=== PATIENT | female | born 1980 | race Caucasian/White ===

== ENCOUNTER 2019-07-21 16:36 | Outpatient (CLI) | payer OTHER, SELFPAY ==
--- NOTE | 2019-07-21 17:30 | MR_ITS ---
WS: [id number] MRI CERVICAL SPINE NONCONTRAST TECHNIQUE: Sagittal T1, T2 and STIR imaging. Axial T2, gradient, and fiesta imaging. CLINICAL INFORMATION: neck pain COMPARISON: None. FINDINGS: Mild cervical curve. Straightening of the normal cervical lordosis. No high-grade central canal steno sis. Disc bulging worse at C3-4 and C5-C6. Benign hemangioma C5 and C7 vertebral bodies C2-C3: Normal. C3-C4: Mild disc bulging and osteophytic ridging eccentric to the right with shallow right pericentra l disc osteophyte bulging. Spinal canal and foramen are patent. Slight effacement of the ventral thec al sac. C4-C5: Normal. C5-C6: Mild disc bulging and osteophytic ridging. Slight effacement of the ventral thecal sac with a shallow broad-based right pericentral protrusion. Mild to moderate right and no significant left fora bladimir narrowing. Mild facet arthropathy. C6-C7: Spinal canal and foramen are patent. Mild facet arthropathy. C7-T1: Mild left bony foraminal narrowing. Spinal canal and right foramen are patent. Visualized brain stem structures: Normal. Prevertebral soft tissues: Normal. MR/MR cervical spin wo con* [id number] IMPRESSION: 1. Mild cervical curve with straightening of the normal cervical lordosis. 2. Mild disc bulging worse at C3-C4 and C5-C6 worse at C5-C6. 3. Broad-based shallow right pericentral disc osteophyte complex C5-C6 with sl ight effacement of ventral thecal sac. Mild to moderate right foraminal narrowi ng. Mild facet arthropathy at this level. 4. Tiny right shallow pericentral protrusion C3-C4 with slight effacement of t he ventral thecal sac. Spinal canal and foramen are patent. 5. Mild facet arthropathy C5-C6 and C6-C7. 6. Mild left C7-T1 bony foraminal narrowing.
== END 2019-07-21 16:37 | disposition home or self-care (01) ==
PROVIDERS: Family Provider Nurse Practitioner Family; PCP Nurse Practitioner Family; Visit Provider Nurse Practitioner Family
DX: M25.78 Osteophyte, vertebrae (principal); M50.21 Other cervical disc displacement, high cervical region; M54.2 Cervicalgia
CPT/HCPCS: 72141

== ENCOUNTER 2019-10-10 10:15 | Outpatient (CLI) | payer OTHER, SELFPAY ==
--- NOTE | 2019-10-10 11:30 | CT_ITS ---
WS: [id number] CT ABDOMEN AND PELVIS WITH CONTRAST HISTORY: abd pain TECHNIQUE: Imaging performed of the abdomen and pelvis with IV contrast. Single phase imaging of the abdomen. Coronal and sagittal reformats are submitted. All CT scans at [facility] use at least one of these dose optimization techniques: automated exposure control; mA and/or kV adjustment per patient size (includes targeted exams where dose is matched to clinical indication); or iterativ e reconstruction. IV CONTRAST: Omnipaque 300; 95 mL IV. Oral contrast: Yes. DLP: 934.27 mGycm COMPARISON: None available. Lower thorax: Mild emphysematous changes at the lung bases. Heart is normal size. No hiatal hernia. 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 No bi le duct dilatation or mass. Gallbladder: Prior cholecystectomy. Pancreas: Normal. Spleen: Normal. Adrenal glands: Normal. Right kidney: Normal. Left kidney: Normal. Aorta: Normal. Lymphadenopathy: None. Free fluid: None. GI tract: The appendix is not definitely visualized. There are no inflammatory changes associated wit h the colon. Mild fecal retention. No obstruction or mucosal thickening. Abdominal wall: Unremarkable abdominal wall. No hernia. Pelvis: Normal. Bones: Unremarkable. CT/CT abdomen pelvis w con* [id number] IMPRESSION: 1. No acute intra-abdominal or pelvic abnormalities. 2. Appendix is not definitely visualized but there are no secondary findings o f appendicitis. 3. Prior cholecystectomy. 4. No free fluid or adenopathy.
[2019-10-10] MEDS: iohexol 300 mg/mL 50 mL Btl IV (11:48)
[2019-10-10] MEDS: iohexol 300 mg/mL 100 mL Btl IV (11:48)
== END 2019-10-10 10:16 | disposition home or self-care (01) ==
LOC: RADWPI 10:18
PROVIDERS: Family Provider Nurse Practitioner Family; PCP Nurse Practitioner Family; Visit Provider Nurse Practitioner Family
DX: R10.9 Unspecified abdominal pain (principal); Z90.49 Acquired absence of other specified parts of digestive tract
CPT/HCPCS: 74177; Q9967

== ENCOUNTER → 2020-12-24 16:33 | Outpatient (BNVA) | payer OTHER, SELFPAY | PROVIDERS: Family Provider Nurse Practitioner Family; PCP Nurse Practitioner Family; Visit Provider Nurse Practitioner Family | DX: R53.83 Other fatigue (principal); M25.50 Pain in unspecified joint; Z86.718 Personal history of other venous thrombosis and embolism; M79.606 Pain in leg, unspecified | CPT/HCPCS: 80053; 85025; 85379; 85651; 86038; 86140; 86431 ==

== ENCOUNTER → 2021-07-30 08:48 | Outpatient (BNVA) | payer OTHER, SELFPAY | PROVIDERS: Family Provider Nurse Practitioner Family; PCP Nurse Practitioner Family; Visit Provider Nurse Practitioner Family | DX: R53.83 Other fatigue (principal); I10 Essential (primary) hypertension; E78.5 Hyperlipidemia, unspecified; R07.89 Other chest pain | CPT/HCPCS: 80053; 80061; 84439; 84443; 84481 ==

== ENCOUNTER 2021-12-04 08:17 | Outpatient (CLI) | payer OTHER, SELFPAY ==
[2021-12-04 08:53] VITALS: BMI 23.8
--- NOTE | 2021-12-04 08:55 | ECG_ITS ---
[facility] Test Date: 2021-12-04 Pat Name: Janet Bernard Department: Room: Gender: Female [employer]: : 1980 Requested By: Linda Rodríguez Order Number: [id number] Barros MD: Estiven Gong M.D. Interpretive Statements NAME OF STUDY: EXERCISE SESTAMIBI STRESS TEST INDICATION: Chest Pain, PROCEDURE: The baseline electrocardiogram showed normal sinus rhythm with normal ST-Ts. At the baseline, the patient's blood pressure was 117/80 mm Hg with a heart rate of 96. The patient exercised for 5 minutes and 59 seconds on a standard Hi protocol. Patient attained a maximum heart rate of 158 beats per minute(87% of the maximum predicted heart rate) with a blood pressure at the peak exercise of 151/77 mm Hg. The EKG at the peak exercise revealed [address] depressions in the inferolateral leads. Patient did not have any chest pain or any significant arrhythmis with the exercise Sestamibi was injected 1 minute prior to the peak exercise During the recovery phase, there were no new changes. Blood pressure at the end of the recovery phase was 118/75 mm Hg with a heart rate of 96 per minute. CONCLUSION: 1. Nonspecific EKG changes with the treadmill exercise 2. No exercise-induced chest pain or cardiac arrhythmia 3. Somewhat impaired exercise tolerance, attained a maximum of 7.0 METs 4. Sestamibi/Sestamibi perfusion results pending; see separate report. Electronically Signed On 12-06-2021 17:52:07 CDT by Estiven Gong M.D. [id number]
--- NOTE | 2021-12-04 08:55 | NMCV_ITS ---
NM juan perf SPECT r/s* [id number] Janet Bernard Age: 41 Gender: F : 1980 Exam Date: 12/04/2021 09:46 Ordering Phys: Linda Rodríguez-Trevor ARITAP Technologist: VLADIMIR Nicholson Exam Location: [facility] Indications: Chest pain STRESS TEST Please see separate stress test report in [facility] for full findings IMAGE PROTOCOL Rest/Stress 1 Radiopharmaceutical Dose (mCi) Administration Site Administered by Rest: Tc-99m 10.6 IV VLADIMIR Nicholson Sestamidejan Stress:Tc-99m 32.5 IV VLADIMIR Nicholson Sestamidejan Rest: 04-Dec-2021 60 Discovery 630 Stress: 04-Dec-2021 30 Discovery 630 Radiopharmaceutical was injected at 86 % maximum heart rate. Images obtained in supine and prone position. SPECT RESULTS Technical Quality: Poor Raw Data Analysis: Breast attenuation Image Corrections: No attenuation or motion correction applied Summed Stress Score: 0 Summed Rest Score: 0 Summed Difference Score: 0 PERFUSION FINDINGS Small area of slightly decreased tracer uptake was noted in the mid anterior wall region with no reversibility FUNCTIONAL RESULTS (calculated via Gated SPECT) Stress Image LV EF (%): 62 Stress EDV (mL):73 TID: 1 Stress ESV (mL):28 FUNCTIONAL FINDINGS: Segmental wall motion analysis revealing no gross wall motion abnormalities IMPRESSIONS 1. Myocardial perfusion imaging revealing fairly uniform myocardial tracer uptake with no significant perfusion normalities. 2. Normal LV ejection fraction of 62%. 3. Segmental wall motion analysis revealing no gross wall motion abnormalities 4. Normal LV volume Low probability for coronary ischemia, based on the above findings Dr Estiven Gong MD FACC (Electronically Signed) Final Date: 04 December 2021 18:24 S
[2021-12-04 10:57] VITALS: BP 118/75; PULSE 95
== END 2021-12-04 08:18 | disposition home or self-care (01) ==
LOC: CDL 08:18
PROVIDERS: PCP Nurse Practitioner Family; Visit Provider Nurse Practitioner Family
DX: R07.9 Chest pain, unspecified (principal)
CPT/HCPCS: 78452; 93017; A9500

== ENCOUNTER → 2022-08-04 10:44 | Outpatient (BNVA) | payer OTHER, SELFPAY | PROVIDERS: PCP Nurse Practitioner Family; Visit Provider Nurse Practitioner Family | DX: F41.9 Anxiety disorder, unspecified (principal); E78.5 Hyperlipidemia, unspecified | CPT/HCPCS: 80053; 80061 ==

== ENCOUNTER → 2022-12-01 09:04 | Outpatient (BNVA) | payer OTHER, SELFPAY | PROVIDERS: PCP Nurse Practitioner Family; Visit Provider Nurse Practitioner Family | DX: R53.83 Other fatigue (principal); W57.XXXA Bitten or stung by nonvenomous insect and other nonvenomous arthropods, initial encounter | CPT/HCPCS: 84443; 86003; 86008; 86618; 86666; 86757 ==

== ENCOUNTER 2023-08-05 15:46 | Outpatient (CLI) | payer OTHER, SELFPAY ==
--- NOTE | 2023-08-05 15:53 | XR_ITS ---
WS: [id number] Exam: XR cervical spine 3V* [id number] Date/Time of Exam: 08/05/2023 3:53 PM Reason For Exam: M54.2 - Cervicalgia No fracture or dislocation. Disc bases are preserved. Posterior elements are intact. Minimal facet DJ D. Slight straightening of the upper C-spine. Normal paraspinal soft tissues. The odontoid is intact. IMPRESSION: 1. No fracture or malalignment. 2. Minor findings as above.
--- NOTE | 2023-08-05 15:53 | XR_ITS ---
WS: [id number] Exam: XR shoulder RT min 2V* [id number] Date/Time of Exam: 08/05/2023 3:53 PM Reason For Exam: M25.511 - Pain in right shoulder The projections of the shoulder reveal no fractures, anomalies, soft tissue swelling, or calcificatio ns. There is normal bony alignment. No irregularity of the bony architecture is noted. IMPRESSION: Negative RIGHT shoulder.
== END 2023-08-05 15:47 | disposition home or self-care (01) ==
LOC: RAD 15:47
PROVIDERS: PCP Nurse Practitioner Family; Visit Provider Nurse Practitioner Family
DX: M54.2 Cervicalgia (principal); M25.511 Pain in right shoulder
CPT/HCPCS: 72040; 73030